=== PATIENT | male | born 1965 | race Two or more races ===

== ENCOUNTER 2021-11-16 16:09 | Emergency (ER) | payer SELFPAY ==
[~2021-11-16] VITALS: Ht 177.8 cm; Wt 95.3 kg
[2021-11-16] MEDS ORDERED: HYDROCODONE/APAP 5-325MG TABLET ONE (16:35)
[2021-11-16] MEDS ORDERED: LIDOCAINE HCL 1% 20 ML VIAL IJ ONE (17:30)
[2021-11-16] MEDS ORDERED: LIDOCAINE HCL 1% 20 ML VIAL ONE (17:36)
[2021-11-16] MEDS ORDERED: HYDR-3972 PO (18:27)
[2021-11-16] MEDS ORDERED: SULF1TAB48 PO (18:27)
[2021-11-16] MEDS ORDERED: SULFAMETH/TRIMETH 800/160 MG TABLET PO ONE (18:30)
--- NOTE | 2021-11-16 18:31 | NUR ---
Patient discharged to home in stable condition. Written and verbal after care instructions given. Patient verbalizes understanding of instructions. Stressed follow up or return to ER for worsening s/s.
[2021-11-16] MEDS ORDERED: SULFAMETH/TRIMETH 800/160 MG TABLET ONE (18:35)
== END 2021-11-16 18:39 | disposition home or self-care (01) ==
LOC: ER 16:11
DX: L02.411 Cutaneous abscess of right axilla (principal); S46.212A Strain of muscle, fascia and tendon of other parts of biceps, left arm, initial encounter; X50.0XXA Overexertion from strenuous movement or load, initial encounter; Y92.89 Other specified places as the place of occurrence of the external cause
CPT/HCPCS: 10060; 99283; J3490; A4217; A4663

== ENCOUNTER 2021-12-17 10:07 | Emergency (ER) | payer SELFPAY ==
[~2021-12-17] VITALS: Ht 177.8 cm; Wt 95.3 kg
[~2021-12-17 10:07] MED LIST: HYDR-3972 PO; SULF1TAB48 PO
--- NOTE | 2021-12-17 10:28 | NUR ---
Patient states he changed his mind and does niot want an xray and is going stright to [facility] [place] where "they have all my records and I want to be there" Dr Lovelace spoke to him
[2021-12-17] MEDS ORDERED: CEPH500C2 PO (10:35)
[2021-12-17] MEDS ORDERED: SULF1TAB48 PO (10:35)
== END 2021-12-17 10:52 | disposition home or self-care (01) ==
LOC: ER 10:07
DX: S46.202A Unspecified injury of muscle, fascia and tendon of other parts of biceps, left arm, initial encounter (principal); X50.0XXA Overexertion from strenuous movement or load, initial encounter; Y92.89 Other specified places as the place of occurrence of the external cause; L08.9 Local infection of the skin and subcutaneous tissue, unspecified; R03.0 Elevated blood-pressure reading, without diagnosis of hypertension
CPT/HCPCS: A4663

== ENCOUNTER 2023-10-10 04:28 | Emergency (ER) | payer MEDICAID ==
[~2023-10-10] VITALS: Ht 177.8 cm; Wt 90.7 kg
[~2023-10-10 04:28] MED LIST changes: +CEPH500C2 PO
[2023-10-10 04:32] VITALS: O2SAT 99
[2023-10-10] MEDS ORDERED: ASPIRIN 81 MG TAB.CHEW PO ONE (05:00)
[2023-10-10] MEDS ORDERED: NAPROXEN 500 MG TABLET PO ONE (05:00)
[2023-10-10] MEDS ORDERED: CEFTRIAXONE 1 G in IV DEXTROSE 5% 50 ML IV ONE (05:15)
[2023-10-10] MEDS ORDERED: AZITHROMYCIN IV 500 MG in IV DEXTROSE 5% 250 ML IV ONE (05:15)
[2023-10-10] MEDS ORDERED: IV NORMAL SALINE 500 ML IV ONE (05:15)
[2023-10-10] MEDS ORDERED: AZITHROMYCIN 500MG/ D5W 250ML IVPB **ER PYXIS ONLY IV ONE (05:22)
[2023-10-10] MEDS ORDERED: ASPIRIN 325 MG TABLET ONE (05:22)
[2023-10-10] MEDS ORDERED: CEFTRIAXONE /D5W 50ML IVPB **ER PYXIS IV ONE (05:22)
[2023-10-10] MEDS ORDERED: NAPROXEN 500 MG TABLET ONE (05:22)
[2023-10-10 05:29] LABS: BASOPHILS % (AUTO) 0.5 % (0.0-2.0); EOSINOPHILS % (AUTO) 0.5 % (0.0-7.0); HEMATOCRIT 41.8 % (36.7-47.1); HEMOGLOBIN 14.4 g/dL (12.5-16.3); LYMPHOCYTES # (AUTO) 1.1 K/uL (0.8-4.8); LYMPHOCYTES % (AUTO) 12.9 % (20.5-51.5); MEAN CORPUSCULAR HEMOGLOBIN 29.3 uug (23.8-33.4); MEAN CORPUSCULAR HGB CONC 35 g/dL (32.5-36.3); MONOCYTES # (AUTO) 0.5 K/uL (0.1-1.30); MONOCYTES % (AUTO) 6.1 % (0.0-11.0); NEUTROPHILS # (AUTO) 6.7 K/uL (1.8-8.9); PLATELET COUNT (AUTO) 229 K/uL (152-348); RED BLOOD CELL COUNT(AUTO) 4.92 MIL/uL (4.06-5.63); WHITE BLOOD COUNT (AUTO) 8.3 K/uL (3.6-10.2)
[2023-10-10 05:45] LABS: CALCIUM 8.7 mg/dL (8.5-10.1); CARBON DIOXIDE 25 mmol/L (21-32); CHLORIDE 100 mmol/L (98-107); CREATININE 0.9 mg/dL (0.6-1.3); GLUCOSE 170 mg/dL (74-106); POTASSIUM 3.8 mmol/L (3.5-5.1); SODIUM SERUM 134 mmol/L (136-145); UREA NITROGEN, BLOOD 21 mg/dL (7-18)
[2023-10-10 05:50] LABS: DIFFERENTIAL COMMENT 1
[2023-10-10] MEDS ORDERED: DOXY100C5 PO (05:51)
[2023-10-10] MEDS ORDERED: AMOX-430 PO (05:51)
[2023-10-10] MEDS ORDERED: MORPHINE SULFATE 4 MG/1 ML DISP.SYRIN ONE (05:52)
[2023-10-10] MEDS ORDERED: ONDANSETRON 4 MG/2 ML VIAL ONE (05:52)
[2023-10-10] MEDS ORDERED: ONDANSETRON 4 MG/2 ML VIAL IV ONE (06:00)
[2023-10-10] MEDS ORDERED: MORPHINE SULFATE 4 MG/1 ML DISP.SYRIN IV ONE (06:00)
[2023-10-10] MEDS ORDERED: IV NORMAL SALINE 250 ML IV ONE (06:53)
[2023-10-10] MEDS ORDERED: IOHEXOL 350 100 ML INFUS..BTL ONE (06:53)
[2023-10-10] MEDS ORDERED: SWABABLE VALVE TRANSFER SET EA MC ONE (06:53)
[2023-10-11] MEDS ORDERED: ALBUTEROL SULFATE 2.5 MG/3 ML NEBU ONE (16:46)
[2023-10-11] MEDS ORDERED: IPRATROPIUM BROMIDE 0.5 MG/2.5 ML NEBU ONE (16:47)
[2023-10-11] MEDS ORDERED: ENOXAPARIN SODIUM 40 MG/0.4 ML DISP.SYRIN SQ ONE (21:18)
[2023-10-11] MEDS ORDERED: AZITHROMYCIN 500MG/ D5W 250ML IVPB **ER PYXIS ONLY IV ONE (21:18)
[2023-10-11] MEDS ORDERED: CEFTRIAXONE /D5W 50ML IVPB **ER PYXIS IV ONE (21:18)
== END 2023-10-10 11:27 | disposition left against medical advice (07) ==
LOC: ER 04:31
DX: R07.89 Other chest pain (principal); J18.9 Pneumonia, unspecified organism; Z79.899 Other long term (current) drug therapy
CPT/HCPCS: 36415; 71045; 71275; 83735; 84484; 85025; 93005; A4606; A4663; J0456; J0696; J1650; J2270; J2405; J3590; J7040; Q9967

== ENCOUNTER 2023-10-11 15:28 | Inpatient (IN) | payer MEDICAID ==
[~2023-10-11] VITALS: Ht 177.8 cm; Wt 90.7 kg
[~2023-10-11 15:28] MED LIST changes: +AMOX-430 PO; -CEPH500C2 PO; +DOXY100C5 PO; -HYDR-3972 PO; -SULF1TAB48 PO
[2023-10-11] MEDS ORDERED: IPRATROPIUM BROMIDE 0.5 MG/2.5 ML NEBU ONE (16:40)
[2023-10-11] MEDS ORDERED: ALBUTEROL SULFATE 2.5 MG/3 ML NEBU ONE (16:40)
[2023-10-11 16:45] VITALS: O2SAT 92
[2023-10-11] MEDS ORDERED: IPRATROPIUM BROMIDE 0.5 MG/2.5 ML NEBU NEB ONE (16:45)
[2023-10-11] MEDS ORDERED: ALBUTEROL SULFATE 2.5 MG/3 ML NEBU NEB ONE (16:45)
[2023-10-11 17:00] VITALS: O2SAT 99
[2023-10-11] MEDS ORDERED: CEFTRIAXONE 1 G in IV DEXTROSE 5% 50 ML IV ONE (17:00)
[2023-10-11] MEDS ORDERED: IV NORMAL SALINE 1000 ML BAG IV ONE (17:00)
[2023-10-11] MEDS ORDERED: AZITHROMYCIN 250 MG TABLET PO ONE (17:00)
[2023-10-11] MEDS ORDERED: DEXAMETHASONE SOD PHOSPHATE 4 MG INJ IV ONE (17:00)
[2023-10-11 17:39] LABS: BASOPHILS # (AUTO) 0.1 K/UL (0.0-0.2); BASOPHILS % (AUTO) 0.4 % (0.0-2.0); EOSINOPHILS % (AUTO) 0.2 % (0.0-7.0); HEMATOCRIT 43.1 % (36.7-47.1); HEMOGLOBIN 14.1 g/dL (12.5-16.3); LYMPHOCYTES # (AUTO) 1.1 K/uL (0.8-4.8); LYMPHOCYTES % (AUTO) 8.8 % (20.5-51.5); MEAN CORPUSCULAR HEMOGLOBIN 28.5 uug (23.8-33.4); MEAN CORPUSCULAR HGB CONC 33 g/dL (32.5-36.3); MEAN CORPUSCULAR VOLUME 86.7 fL (73.0-96.2); MONOCYTES # (AUTO) 0.9 K/uL (0.1-1.30); MONOCYTES % (AUTO) 7.2 % (0.0-11.0); NEUTROPHILS # (AUTO) 10.4 K/uL (1.8-8.9); NEUTROPHILS % (AUTO) 83.4 % (38.5-71.5); PLATELET COUNT (AUTO) 244 K/uL (152-348); RED BLOOD CELL COUNT(AUTO) 4.97 MIL/uL (4.06-5.63); RED CELL DISTRIBUTION WIDTH 14.2 % (12.1-16.2); WHITE BLOOD COUNT (AUTO) 12.5 K/uL (3.6-10.2)
[2023-10-11 17:41] LABS: DIFFERENTIAL COMMENT 1
[2023-10-11] MEDS ORDERED: CEFTRIAXONE /D5W 50ML IVPB **ER PYXIS IV ONE (17:48)
[2023-10-11] MEDS ORDERED: DEXAMETHASONE SOD PHOSPHATE 10 MG INJ ONE (17:49)
[2023-10-11] MEDS ORDERED: AZITHROMYCIN 250 MG TABLET ONE (17:49)
[2023-10-11 17:51] LABS: CALCIUM 9.2 mg/dL (8.5-10.1); CREATININE 1.4 mg/dL (0.6-1.3); POTASSIUM 4.4 mmol/L (3.5-5.1)
[2023-10-11 18:07] LABS: ALBUMIN 3.1 g/dL (3.4-5.0); BILIRUBIN,DIRECT 0.2 mg/dL (0.0-0.2); BILIRUBIN,TOTAL 0.6 mg/dL (0.2-1.0); TOTAL PROTEIN, SERUM 7.5 g/dL (6.4-8.2)
[2023-10-11] MEDS ORDERED: ONDANSETRON 4 MG/2 ML VIAL IV PRN (20:45)
[2023-10-11] MEDS ORDERED: ENOXAPARIN SODIUM 40 MG/0.4 ML DISP.SYRIN SQ SCH (20:45)
[2023-10-11 22:55] VITALS: BP 138/72; TEMP 98.9; O2SAT 90
[2023-10-12] VITALS (8 sets, daily range): BP systolic 124–150; BP diastolic 58–87; TEMP 98.3–99.6; O2SAT 92–96
[2023-10-12] MEDS: ACETAMINOPHEN 325 MG TABLET PO PRN ×2 (03:23→23:12)
[2023-10-12] MEDS: MORPHINE SULFATE 2 MG/1 ML DISP.SYRIN IV PRN ×3 (04:35→21:52)
[2023-10-12 04:46] LABS: BASOPHILS # (AUTO) 0.1 K/UL (0.0-0.2); BASOPHILS % (AUTO) 0.4 % (0.0-2.0); HEMATOCRIT 41.8 % (36.7-47.1); HEMOGLOBIN 14.3 g/dL (12.5-16.3); LYMPHOCYTES # (AUTO) 0.6 K/uL (0.8-4.8); LYMPHOCYTES % (AUTO) 4.4 % (20.5-51.5); MEAN CORPUSCULAR HEMOGLOBIN 29.1 uug (23.8-33.4); MEAN CORPUSCULAR HGB CONC 34 g/dL (32.5-36.3); MEAN CORPUSCULAR VOLUME 85.2 fL (73.0-96.2); MONOCYTES # (AUTO) 0.7 K/uL (0.1-1.30); NEUTROPHILS # (AUTO) 12.1 K/uL (1.8-8.9); NEUTROPHILS % (AUTO) 90.2 % (38.5-71.5); PLATELET COUNT (AUTO) 259 K/uL (152-348); RED BLOOD CELL COUNT(AUTO) 4.91 MIL/uL (4.06-5.63); RED CELL DISTRIBUTION WIDTH 13.9 % (12.1-16.2); WHITE BLOOD COUNT (AUTO) 13.5 K/uL (3.6-10.2)
[2023-10-12 05:03] LABS: DIFFERENTIAL COMMENT 1
[2023-10-12 05:12] LABS: CALCIUM 9.1 mg/dL (8.5-10.1); MAGNESIUM 2.4 mg/dL (1.8-2.4); POTASSIUM 4.3 mmol/L (3.5-5.1)
[2023-10-12] MEDS ORDERED: CEFTRIAXONE 1 G in IV DEXTROSE 5% 50 ML IV SCH (09:00)
[2023-10-12] MEDS ORDERED: IPRATROPIUM BROMIDE 0.5 MG/2.5 ML NEBU NEB PRN (10:15)
[2023-10-12] MEDS ORDERED: ALBUTEROL SULFATE 2.5 MG/3 ML NEBU NEB PRN (10:15)
[2023-10-12] MEDS ORDERED: NEUTRA PHOS PACKET PO ONE (16:00)
[2023-10-12] MEDS ORDERED: KETOROLAC TROMETHAMINE 15 MG INJ IVP ONE (16:00)
[2023-10-12] MEDS: CEFTRIAXONE 1 G in IV DEXTROSE 5% 50 ML IV SCH (17:02)
[2023-10-12] MEDS: AZITHROMYCIN IV 500 MG in IV DEXTROSE 5% 250 ML IV SCH (17:45)
[2023-10-12] MEDS: ENOXAPARIN SODIUM 40 MG/0.4 ML DISP.SYRIN SQ SCH (21:36)
[2023-10-12] MEDS: ZOLPIDEM 5 MG TABLET PO PRN (23:05)
[2023-10-13 08:00] VITALS: BP 143/74; TEMP 99.6; O2SAT 95
[2023-10-13 08:27] LABS: BASOPHILS % (AUTO) 0.2 % (0.0-2.0); EOSINOPHILS % (AUTO) 0.3 % (0.0-7.0); HEMATOCRIT 40.6 % (36.7-47.1); HEMOGLOBIN 13.9 g/dL (12.5-16.3); LYMPHOCYTES # (AUTO) 1.5 K/uL (0.8-4.8); LYMPHOCYTES % (AUTO) 12.6 % (20.5-51.5); MEAN CORPUSCULAR HGB CONC 34 g/dL (32.5-36.3); MEAN CORPUSCULAR VOLUME 84.5 fL (73.0-96.2); MONOCYTES # (AUTO) 0.8 K/uL (0.1-1.30); MONOCYTES % (AUTO) 6.8 % (0.0-11.0); NEUTROPHILS # (AUTO) 9.3 K/uL (1.8-8.9); NEUTROPHILS % (AUTO) 80.1 % (38.5-71.5); PLATELET COUNT (AUTO) 300 K/uL (152-348); RED BLOOD CELL COUNT(AUTO) 4.81 MIL/uL (4.06-5.63); RED CELL DISTRIBUTION WIDTH 14.1 % (12.1-16.2); WHITE BLOOD COUNT (AUTO) 11.6 K/uL (3.6-10.2)
[2023-10-13] MEDS: MORPHINE SULFATE 2 MG/1 ML DISP.SYRIN IV PRN ×2 (08:28→20:11)
[2023-10-13 08:43] LABS: DIFFERENTIAL COMMENT 1
[2023-10-13 08:52] LABS: CALCIUM 8.8 mg/dL (8.5-10.1); CREATININE 0.8 mg/dL (0.6-1.3); MAGNESIUM 2.1 mg/dL (1.8-2.4); PHOSPHOROUS 2.8 mg/dL (2.5-4.9); POTASSIUM 3.8 mmol/L (3.5-5.1)
[2023-10-13] MEDS: FAMOTIDINE 20 MG TABLET PO SCH ×2 (11:05→20:09)
[2023-10-13] MEDS: INDOMETHACIN 25 MG CAPSULE PO SCH ×2 (11:14→17:31)
[2023-10-13 11:56] VITALS: BP 145/78; TEMP 98.3; O2SAT 96
[2023-10-13 16:09] VITALS: BP 152/83; TEMP 98.9; O2SAT 94
[2023-10-13] MEDS: CEFTRIAXONE 1 G in IV DEXTROSE 5% 50 ML IV SCH (17:29)
[2023-10-13] MEDS: AZITHROMYCIN IV 500 MG in IV DEXTROSE 5% 250 ML IV SCH (17:51)
[2023-10-13] MEDS: ENOXAPARIN SODIUM 40 MG/0.4 ML DISP.SYRIN SQ SCH (20:10)
[2023-10-13 20:19] VITALS: BP 143/80; TEMP 98.8; O2SAT 95
[2023-10-13] MEDS: ZOLPIDEM 5 MG TABLET PO PRN (21:53)
[2023-10-14] VITALS (7 sets, daily range): BP systolic 126–139; BP diastolic 64–74; TEMP 97.8–98.7; O2SAT 94–97
[2023-10-14] MEDS: MORPHINE SULFATE 2 MG/1 ML DISP.SYRIN IV PRN ×4 (06:25→20:28)
[2023-10-14 08:13] LABS: BASOPHILS % (AUTO) 0.5 % (0.0-2.0); EOSINOPHILS # (AUTO) 0.1 K/uL (0.0-0.7); EOSINOPHILS % (AUTO) 1.1 % (0.0-7.0); HEMATOCRIT 41.6 % (36.7-47.1); HEMOGLOBIN 14.1 g/dL (12.5-16.3); LYMPHOCYTES # (AUTO) 1.4 K/uL (0.8-4.8); MEAN CORPUSCULAR HEMOGLOBIN 28.7 uug (23.8-33.4); MEAN CORPUSCULAR HGB CONC 34 g/dL (32.5-36.3); MEAN CORPUSCULAR VOLUME 84.6 fL (73.0-96.2); MONOCYTES # (AUTO) 0.8 K/uL (0.1-1.30); MONOCYTES % (AUTO) 9.2 % (0.0-11.0); NEUTROPHILS % (AUTO) 72.2 % (38.5-71.5); PLATELET COUNT (AUTO) 300 K/uL (152-348); RED BLOOD CELL COUNT(AUTO) 4.91 MIL/uL (4.06-5.63); RED CELL DISTRIBUTION WIDTH 13.9 % (12.1-16.2); WHITE BLOOD COUNT (AUTO) 8.3 K/uL (3.6-10.2)
[2023-10-14 08:28] LABS: DIFFERENTIAL COMMENT 1
[2023-10-14] MEDS: FAMOTIDINE 20 MG TABLET PO SCH ×2 (08:34→20:27)
[2023-10-14] MEDS: INDOMETHACIN 25 MG CAPSULE PO SCH ×2 (08:35→17:09)
[2023-10-14 08:38] LABS: CALCIUM 8.7 mg/dL (8.5-10.1); CREATININE 0.7 mg/dL (0.6-1.3); PHOSPHOROUS 4.6 mg/dL (2.5-4.9)
[2023-10-14] MEDS: CEFTRIAXONE 1 G in IV DEXTROSE 5% 50 ML IV SCH (16:13)
[2023-10-14] MEDS: AZITHROMYCIN IV 500 MG in IV DEXTROSE 5% 250 ML IV SCH (17:06)
[2023-10-14] MEDS: ENOXAPARIN SODIUM 40 MG/0.4 ML DISP.SYRIN SQ SCH (20:29)
[2023-10-14] MEDS: ZOLPIDEM 5 MG TABLET PO PRN (21:10)
[2023-10-15] MEDS: MORPHINE SULFATE 2 MG/1 ML DISP.SYRIN IV PRN ×6 (00:26→21:24)
[2023-10-15 00:29] VITALS: BP 136/75; TEMP 98.1; O2SAT 94
[2023-10-15 04:10] VITALS: BP 136/90; TEMP 98.9; O2SAT 94
[2023-10-15 08:07] VITALS: BP 133/70; TEMP 98; O2SAT 96
[2023-10-15] MEDS: INDOMETHACIN 25 MG CAPSULE PO SCH ×2 (08:21→17:06)
[2023-10-15] MEDS: FAMOTIDINE 20 MG TABLET PO SCH ×2 (08:21→21:24)
[2023-10-15 16:00] VITALS: BP 134/86; TEMP 98.5; O2SAT 97
[2023-10-15] MEDS: CEFTRIAXONE 1 G in IV DEXTROSE 5% 50 ML IV SCH (16:08)
[2023-10-15 16:51] VITALS: O2SAT 96
[2023-10-15] MEDS: AZITHROMYCIN IV 500 MG in IV DEXTROSE 5% 250 ML IV SCH (17:05)
[2023-10-15 20:00] VITALS: BP 132/87; TEMP 98.6; O2SAT 96
[2023-10-15] MEDS: ENOXAPARIN SODIUM 40 MG/0.4 ML DISP.SYRIN SQ SCH (21:19)
[2023-10-15] MEDS: ZOLPIDEM 5 MG TABLET PO PRN (21:47)
[2023-10-15] MEDS ORDERED: CEFEPIME HCL 1 G VIAL ONE (23:05)
[2023-10-15] MEDS: CEFEPIME HCL 1 G in IV DEXTROSE 5% 50 ML IV SCH (23:06)
[2023-10-16] MEDS: MORPHINE SULFATE 2 MG/1 ML DISP.SYRIN IV PRN ×2 (01:24→05:11)
[2023-10-16 01:34] VITALS: BP 150/88; TEMP 99.4; O2SAT 96
[2023-10-16] MEDS: CEFEPIME HCL 1 G in IV DEXTROSE 5% 50 ML IV SCH ×3 (05:10→21:44)
[2023-10-16 08:27] LABS: BASOPHILS # (AUTO) 0.2 K/UL (0.0-0.2); BASOPHILS % (AUTO) 1.7 % (0.0-2.0); EOSINOPHILS # (AUTO) 0.4 K/uL (0.0-0.7); EOSINOPHILS % (AUTO) 5.1 % (0.0-7.0); HEMOGLOBIN 14.4 g/dL (12.5-16.3); LYMPHOCYTES % (AUTO) 23.4 % (20.5-51.5); MEAN CORPUSCULAR HEMOGLOBIN 28.9 uug (23.8-33.4); MEAN CORPUSCULAR HGB CONC 34 g/dL (32.5-36.3); MEAN CORPUSCULAR VOLUME 84.6 fL (73.0-96.2); MONOCYTES # (AUTO) 0.8 K/uL (0.1-1.30); MONOCYTES % (AUTO) 9.1 % (0.0-11.0); NEUTROPHILS # (AUTO) 5.3 K/uL (1.8-8.9); NEUTROPHILS % (AUTO) 60.7 % (38.5-71.5); PLATELET COUNT (AUTO) 330 K/uL (152-348); RED BLOOD CELL COUNT(AUTO) 4.97 MIL/uL (4.06-5.63); WHITE BLOOD COUNT (AUTO) 8.8 K/uL (3.6-10.2)
[2023-10-16 08:40] LABS: DIFFERENTIAL COMMENT 1
[2023-10-16 08:47] LABS: CALCIUM 9.1 mg/dL (8.5-10.1); CREATININE 0.9 mg/dL (0.6-1.3); MAGNESIUM 2.6 mg/dL (1.8-2.4); PHOSPHOROUS 4.4 mg/dL (2.5-4.9); POTASSIUM 4.6 mmol/L (3.5-5.1)
[2023-10-16] MEDS: FAMOTIDINE 20 MG TABLET PO SCH ×2 (09:28→21:44)
[2023-10-16] MEDS: INDOMETHACIN 25 MG CAPSULE PO SCH ×2 (09:28→17:11)
[2023-10-16 13:48] VITALS: BP 168/100; O2SAT 96
[2023-10-16 16:05] VITALS: BP 147/67; TEMP 97; O2SAT 97
[2023-10-16 21:00] VITALS: BP 150/88; TEMP 97; O2SAT 97
[2023-10-16] MEDS: ZOLPIDEM 5 MG TABLET PO PRN (21:44)
[2023-10-16] MEDS: ENOXAPARIN SODIUM 40 MG/0.4 ML DISP.SYRIN SQ SCH (22:27)
[2023-10-17] MEDS: MORPHINE SULFATE 2 MG/1 ML DISP.SYRIN IV PRN ×2 (05:14→21:06)
[2023-10-17 05:21] VITALS: BP 147/89; TEMP 97; O2SAT 96
[2023-10-17] MEDS: CEFEPIME HCL 1 G in IV DEXTROSE 5% 50 ML IV SCH ×3 (05:43→21:13)
[2023-10-17 07:03] LABS: BASOPHILS # (AUTO) 0.1 K/UL (0.0-0.2); BASOPHILS % (AUTO) 1.2 % (0.0-2.0); EOSINOPHILS # (AUTO) 0.4 K/uL (0.0-0.7); EOSINOPHILS % (AUTO) 5.1 % (0.0-7.0); HEMATOCRIT 41.3 % (36.7-47.1); HEMOGLOBIN 14.5 g/dL (12.5-16.3); LYMPHOCYTES % (AUTO) 23.3 % (20.5-51.5); MEAN CORPUSCULAR HEMOGLOBIN 29.6 uug (23.8-33.4); MEAN CORPUSCULAR HGB CONC 35 g/dL (32.5-36.3); MEAN CORPUSCULAR VOLUME 84.1 fL (73.0-96.2); MONOCYTES # (AUTO) 0.8 K/uL (0.1-1.30); MONOCYTES % (AUTO) 9.1 % (0.0-11.0); NEUTROPHILS # (AUTO) 5.3 K/uL (1.8-8.9); NEUTROPHILS % (AUTO) 61.3 % (38.5-71.5); PLATELET COUNT (AUTO) 357 K/uL (152-348); RED BLOOD CELL COUNT(AUTO) 4.91 MIL/uL (4.06-5.63); WHITE BLOOD COUNT (AUTO) 8.6 K/uL (3.6-10.2)
[2023-10-17 07:27] LABS: DIFFERENTIAL COMMENT 1
[2023-10-17 07:28] LABS: CALCIUM 8.6 mg/dL (8.5-10.1); CREATININE 0.8 mg/dL (0.6-1.3); MAGNESIUM 2.4 mg/dL (1.8-2.4); PHOSPHOROUS 3.8 mg/dL (2.5-4.9)
[2023-10-17 07:35] LABS: C-REACTIVE PROTEIN 6.72 mg/dL (0.00-0.30)
[2023-10-17 07:47] LABS: POTASSIUM 4.6 mmol/L (3.5-5.1)
[2023-10-17] MEDS: PROTEIN SUPPLEMENT (PROSTAT) 30 ML LIQUID PO SCH (08:00)
[2023-10-17] MEDS: FAMOTIDINE 20 MG TABLET PO SCH ×2 (08:52→20:50)
[2023-10-17] MEDS: INDOMETHACIN 25 MG CAPSULE PO SCH ×2 (08:52→16:45)
[2023-10-17 12:07] VITALS: BP 140/85; TEMP 98.7; O2SAT 99
[2023-10-17 16:00] VITALS: BP 147/71; TEMP 98.1; O2SAT 97
[2023-10-17 20:00] VITALS: BP 161/101; TEMP 97.5; O2SAT 99
[2023-10-17] MEDS: ENOXAPARIN SODIUM 40 MG/0.4 ML DISP.SYRIN SQ SCH (20:52)
[2023-10-17] MEDS: ZOLPIDEM 5 MG TABLET PO PRN (22:26)
[2023-10-18] VITALS: BP 140/92; TEMP 98.2; O2SAT 99
[2023-10-18 04:00] VITALS: BP 136/87; TEMP 98.5; O2SAT 98
[2023-10-18] MEDS: CEFEPIME HCL 1 G in IV DEXTROSE 5% 50 ML IV SCH ×3 (05:26→21:06)
[2023-10-18 06:58] LABS: BASOPHILS # (AUTO) 0.1 K/UL (0.0-0.2); BASOPHILS % (AUTO) 0.9 % (0.0-2.0); EOSINOPHILS # (AUTO) 0.5 K/uL (0.0-0.7); EOSINOPHILS % (AUTO) 5.3 % (0.0-7.0); HEMATOCRIT 40.5 % (36.7-47.1); HEMOGLOBIN 14.2 g/dL (12.5-16.3); LYMPHOCYTES # (AUTO) 2.2 K/uL (0.8-4.8); LYMPHOCYTES % (AUTO) 25.4 % (20.5-51.5); MEAN CORPUSCULAR HEMOGLOBIN 29.4 uug (23.8-33.4); MEAN CORPUSCULAR HGB CONC 35 g/dL (32.5-36.3); MEAN CORPUSCULAR VOLUME 83.8 fL (73.0-96.2); MONOCYTES # (AUTO) 0.9 K/uL (0.1-1.30); MONOCYTES % (AUTO) 10.2 % (0.0-11.0); NEUTROPHILS # (AUTO) 5.1 K/uL (1.8-8.9); NEUTROPHILS % (AUTO) 58.2 % (38.5-71.5); PLATELET COUNT (AUTO) 364 K/uL (152-348); RED BLOOD CELL COUNT(AUTO) 4.83 MIL/uL (4.06-5.63); RED CELL DISTRIBUTION WIDTH 13.6 % (12.1-16.2); WHITE BLOOD COUNT (AUTO) 8.8 K/uL (3.6-10.2)
[2023-10-18 07:41] LABS: CALCIUM 8.8 mg/dL (8.5-10.1); CREATININE 0.8 mg/dL (0.6-1.3); MAGNESIUM 2.3 mg/dL (1.8-2.4); PHOSPHOROUS 3.9 mg/dL (2.5-4.9); POTASSIUM 4.3 mmol/L (3.5-5.1)
[2023-10-18 07:57] LABS: DIFFERENTIAL COMMENT 1
[2023-10-18] MEDS: PROTEIN SUPPLEMENT (PROSTAT) 30 ML LIQUID PO SCH (08:00)
[2023-10-18] MEDS: INDOMETHACIN 25 MG CAPSULE PO SCH ×2 (08:28→17:35)
[2023-10-18] MEDS: FAMOTIDINE 20 MG TABLET PO SCH ×2 (08:28→20:46)
[2023-10-18 11:33] VITALS: BP 148/90; TEMP 98.5; O2SAT 98
[2023-10-18 15:15] VITALS: BP 141/92; TEMP 97.7; O2SAT 98
[2023-10-18] MEDS: MORPHINE SULFATE 2 MG/1 ML DISP.SYRIN IV PRN (18:16)
[2023-10-18 20:00] VITALS: BP 154/92; TEMP 98; O2SAT 97
[2023-10-18] MEDS: ENOXAPARIN SODIUM 40 MG/0.4 ML DISP.SYRIN SQ SCH (20:47)
[2023-10-19] MEDS: CEFEPIME HCL 1 G in IV DEXTROSE 5% 50 ML IV SCH ×3 (05:13→21:09)
[2023-10-19] MEDS: PROTEIN SUPPLEMENT (PROSTAT) 30 ML LIQUID PO SCH (08:58)
[2023-10-19] MEDS: FAMOTIDINE 20 MG TABLET PO SCH ×3 (08:58→21:08)
[2023-10-19] MEDS: INDOMETHACIN 25 MG CAPSULE PO SCH ×2 (09:39→18:04)
[2023-10-19 11:30] VITALS: BP 123/78; TEMP 98; O2SAT 98
[2023-10-19] MEDS: MORPHINE SULFATE 2 MG/1 ML DISP.SYRIN IV PRN ×2 (13:09→22:14)
[2023-10-19 15:35] VITALS: BP 135/86; TEMP 99.4; O2SAT 98
[2023-10-19] MEDS: ENOXAPARIN SODIUM 40 MG/0.4 ML DISP.SYRIN SQ SCH (21:12)
[2023-10-19] MEDS: ZOLPIDEM 5 MG TABLET PO PRN (21:13)
[2023-10-19 21:32] VITALS: BP 139/63; TEMP 98.2; O2SAT 99
[2023-10-19 21:35] VITALS: BP 144/87; TEMP 98.2; O2SAT 100
[2023-10-20] MEDS: CEFEPIME HCL 1 G in IV DEXTROSE 5% 50 ML IV SCH (06:09)
[2023-10-20 06:25] VITALS: BP 119/76; TEMP 98.5; O2SAT 95
[2023-10-20 07:32] LABS: BASOPHILS # (AUTO) 0.1 K/UL (0.0-0.2); BASOPHILS % (AUTO) 0.9 % (0.0-2.0); EOSINOPHILS # (AUTO) 0.4 K/uL (0.0-0.7); HEMATOCRIT 40.6 % (36.7-47.1); HEMOGLOBIN 13.8 g/dL (12.5-16.3); LYMPHOCYTES # (AUTO) 2.1 K/uL (0.8-4.8); LYMPHOCYTES % (AUTO) 23.6 % (20.5-51.5); MEAN CORPUSCULAR HEMOGLOBIN 28.8 uug (23.8-33.4); MEAN CORPUSCULAR HGB CONC 34 g/dL (32.5-36.3); MEAN CORPUSCULAR VOLUME 84.5 fL (73.0-96.2); MONOCYTES # (AUTO) 0.8 K/uL (0.1-1.30); MONOCYTES % (AUTO) 9.2 % (0.0-11.0); NEUTROPHILS # (AUTO) 5.5 K/uL (1.8-8.9); NEUTROPHILS % (AUTO) 62.3 % (38.5-71.5); PLATELET COUNT (AUTO) 368 K/uL (152-348); RED CELL DISTRIBUTION WIDTH 13.6 % (12.1-16.2); WHITE BLOOD COUNT (AUTO) 8.9 K/uL (3.6-10.2)
[2023-10-20 07:45] LABS: CREATININE 0.9 mg/dL (0.6-1.3); MAGNESIUM 2.3 mg/dL (1.8-2.4); PHOSPHOROUS 3.7 mg/dL (2.5-4.9); POTASSIUM 4.1 mmol/L (3.5-5.1)
[2023-10-20 07:47] LABS: C-REACTIVE PROTEIN 7.04 mg/dL (0.00-0.30)
[2023-10-20 07:57] LABS: CALCIUM 8.7 mg/dL (8.5-10.1)
[2023-10-20] MEDS: PROTEIN SUPPLEMENT (PROSTAT) 30 ML LIQUID PO SCH (08:59)
[2023-10-20] MEDS: FAMOTIDINE 20 MG TABLET PO SCH (08:59)
[2023-10-20] MEDS: INDOMETHACIN 25 MG CAPSULE PO SCH (08:59)
[2023-10-20 09:10] VITALS: BP 134/85; TEMP 98.2; O2SAT 92
[2023-10-20] MEDS: MORPHINE SULFATE 2 MG/1 ML DISP.SYRIN IV PRN (09:43)
[2023-10-20] MEDS ORDERED: ALBU8.5H8 INH (13:47)
[2023-10-20] MEDS ORDERED: AMOX-430 PO (13:47)
[2023-10-20 13:53] VITALS: BP 108/46; TEMP 98.2; O2SAT 99
== END 2023-10-20 14:00 | disposition home or self-care (01) | DRG 137 ==
LOC: ER 15:29 → TELE3 22:39 → TELE-TD3 10-12 15:53 → TELE3 10-15 09:10 → MEDSURG3 10-18 11:35 → MED 10-20 07:06
PROVIDERS: ADMIT Nurse Practitioner Acute Care; ATTEND Nurse Practitioner Acute Care
DX: J15.69 Pneumonia due to other Gram-negative bacteria (principal); J96.01 Acute respiratory failure with hypoxia; N17.0 Acute kidney failure with tubular necrosis; J91.8 Pleural effusion in other conditions classified elsewhere; E44.0 Moderate protein-calorie malnutrition; F17.211 Nicotine dependence, cigarettes, in remission; E88.09 Other disorders of plasma-protein metabolism, not elsewhere classified; E86.0 Dehydration; J44.0 Chronic obstructive pulmonary disease with (acute) lower respiratory infection; I71.9 Aortic aneurysm of unspecified site, without rupture; I51.7 Cardiomegaly; K76.0 Fatty (change of) liver, not elsewhere classified; Z59.01 Sheltered homelessness
CPT/HCPCS: 36415; 71045; 71250; 76604; 83605; 83735; 84100; 84484; 85025; 85730; 86140; 87040; 93005; 93307; 94760; A4663; G0378; J0456; J0692; J0696; J1100; J1650; J1885; J2270; J3590; J7050; Q0144